=== PATIENT | male | born 1950 | race Caucasian/White ===

== ENCOUNTER 2018-08-08 15:35 | Inpatient (IN) | payer MEDICARE, BC, OTHER ==
[2018-08-08 15:52] LABS: BEDSIDE GLUCOSE 229 MG/DL (80-115)
[2018-08-08 16:03] LABS: BASO # 0.1 10^3/uL (0.0-0.2); BASO % 1.1 % (0.0-1.0); EOS # 0.4 10^3/uL (0.0-0.50); EOS % 4.4 % (0.0-3.0); HEMATOCRIT 33.7 % (42.0-52.0); IMMATURE GRANULOCYTE % 0.8 % (0-3.0); LYMPH # 1.9 10^3/uL (1.5-4.5); LYMPH % 20.3 % (24.0-44.0); MEAN CORPUSCULAR HEMOGLOBIN 28.9 pg (27.0-33.0); MEAN CORPUSCULAR HGB CONC 32.6 g/dl (32.0-36.5); MEAN CORPUSCULAR VOLUME 88.7 fl (80.0-96.0); MONO # 0.8 10^3/uL (0.0-0.8); MONO % 8.9 % (0.0-5.0); NEUTROPHILS # 5.9 10^3/uL (1.8-7.7); NEUTROPHILS % 64.5 % (36.0-66.0); PLATELET COUNT, AUTOMATED 355 10^3/uL (150-450); RED CELL DISTRIBUTION WIDTH 14.7 % (11.5-14.5); WHITE BLOOD COUNT 9.1 10^3/uL (4.0-10.0)
[2018-08-08] MEDS ORDERED: ATROPINE SULF 1MG/10ML SYRINGE (J0461) As Ordered (16:06)
[2018-08-08 16:15] LABS: INR 1.04; PROTHROMBIN TIME 13.7 SECONDS (12.1-14.4)
[2018-08-08 16:16] LABS: PARTIAL THROMBOPLASTIN TIME 30.7 SECONDS (25.4-37.6)
[2018-08-08 16:50] LABS: ANION GAP 14 MEQ/L (8-16); BLOOD UREA NITROGEN 58 MG/DL (7-18); CALCIUM LEVEL 8.7 MG/DL (8.8-10.2); CARBON DIOXIDE LEVEL 17 MEQ/L (21-32); CHLORIDE LEVEL 109 MEQ/L (98-107); CPK CREATINE PHOSPHOKINASE 210 U/L (39-308); CREATININE FOR GFR 3.52 MG/DL (0.70-1.30); FREE T4 0.99 NG/DL (0.76-1.46); GLOMERULAR FILTRATION RATE 18.5 (>49); GLUCOSE, FASTING 243 MG/DL (70-100); MAGNESIUM LEVEL 2.4 MG/DL (1.8-2.4); MB/CK RELATIVE INDEX 0.76 (< OR =4); POTASSIUM SERUM 6.4 MEQ/L (3.5-5.1); SODIUM LEVEL 140 MEQ/L (136-145); TROPONIN I < 0.02 NG/ML (< 0.10)
[2018-08-08] MEDS: HumuLIN R (REGULAR) INSULIN (NovoLIN R) **100U/ML** PER UNIT IV (17:22)
[2018-08-08] MEDS: SOD POLYSTYRENE SULFONATE SUSP 15 GM/60 ML UD PO ×2 (17:22→21:15)
[2018-08-08] MEDS: DEXTROSE 50% 50 ML SYRINGE IV (17:22)
[2018-08-08] MEDS: CALCIUM GLUCONATE 1,000 MG in D5W MINI-BAG PLUS 100 ML IV (17:23)
[2018-08-08 17:39] LABS: ABG BASE EXCESS -9.5 (-2.0-2.0); ABG HCO3 14.5 MEQ/L (22.0-26.0); ABG O2 SATURATION 97.1 % (95.0-99.0); ABG PARTIAL PRESSURE CO2 26.5 mmHg (35.0-45.0); ABG PARTIAL PRESSURE O2 100.7 mmHg (75.0-100.0); ABG STANDARD HCO3 16.8 MEQ/L (22.0-26.0); ABG TOTAL CO2 15.3 MEQ/L (23.0-31.0); ABG pH (ARTERIAL) 7.356 UNITS (7.350-7.450)
[2018-08-08] MEDS: SODIUM BICARBONATE 75 MEQ in NS 0.45% 1,000 ML IV (18:00)
[2018-08-08] MEDS ORDERED: ACETAMINOPHEN TAB 650MG DOSE (2X325MG) PO (18:30)
[2018-08-08] MEDS ORDERED: GLUCOSE 4 GM CHEW TABLET PO (18:30)
[2018-08-08] MEDS ORDERED: GLUCAGON FOR INJ 1 MG VIAL (J1610) SC (18:30)
[2018-08-08] MEDS ORDERED: DEXTROSE 50% 50 ML SYRINGE IV (18:30)
[2018-08-08] MEDS ORDERED: ONDANSETRON 4MG/2ML VIAL (J2405) IV (18:30)
[2018-08-08 20:32] LABS: ANION GAP 9 MEQ/L (8-16); BLOOD UREA NITROGEN 61 MG/DL (7-18); CALCIUM LEVEL 9.3 MG/DL (8.8-10.2); CARBON DIOXIDE LEVEL 18 MEQ/L (21-32); CHLORIDE LEVEL 110 MEQ/L (98-107); CPK CREATINE PHOSPHOKINASE 183 U/L (39-308); CREATININE FOR GFR 3.67 MG/DL (0.70-1.30); GLOMERULAR FILTRATION RATE 17.6 (>49); GLUCOSE, FASTING 179 MG/DL (70-100); MB/CK RELATIVE INDEX 0.93 (< OR =4); POTASSIUM SERUM 7.1 MEQ/L (3.5-5.1); SODIUM LEVEL 137 MEQ/L (136-145); TROPONIN I < 0.02 NG/ML (< 0.10)
[2018-08-08] MEDS: HumaLOG INSULIN (NovoLOG) PER UNIT SC (21:00)
[2018-08-08] MEDS: LACTULOSE 20 GM/30 ML SYRUP UD PO (21:15)
[2018-08-08] MEDS ORDERED: HEPARIN SOD (PORCINE) 5000 UNITS/ML VIAL IV (21:15)
[2018-08-08] MEDS: SODIUM BICARBONATE 8.4% INJ 50 ML SYRINGE IV (21:15)
[2018-08-08] MEDS: HEPARIN 1,000 UNITS/ML 10ML VIAL (FOR RADIOLOGY& DIALYSIS ONLY) XX (22:00)
[2018-08-08] MEDS: NS 500 ML IV (22:15)
[2018-08-08] MEDS: SENOKOT S TAB PO (23:00)
[2018-08-08 23:01] LABS: BEDSIDE GLUCOSE 183 MG/DL (80-115)
[2018-08-08] MEDS: HEPARIN SOD (PORCINE) 5000 UNITS/ML VIAL SC (23:01)
[2018-08-09] MEDS ORDERED: SODIUM BICARBONATE 75 MEQ in NS 0.45% 1,000 ML IV
[2018-08-09 00:26] LABS: OSMOLALITY URINE 419 MOSM/KG (500-800)
[2018-08-09 00:43] LABS: CHLORIDE,RANDOM URINE 57 MEQ/L; POTASSIUM RANDOM URINE 40.4 MEQ/L; SODIUM,RANDOM URINE 58 MEQ/L; TOTAL PROTEIN,RANDOM URINE 168.5 MG/DL (0.0-12.0)
[2018-08-09 01:18] LABS: AMORPHOUS SEDIMENT SMALL (NEGATIVE); APPEARANCE, URINE HAZY (CLEAR); BACTERIA, URINE AUTO NEGATIVE (NEGATIVE); BILIRUBIN, URINE AUTO NEGATIVE (NEGATIVE); BLOOD, URINE BLOOD 1+ (NEGATIVE); COLOR, URINE YELLOW (YELLOW); GLUCOSE, URINE (UA) AUTO 1+ mg/dL (NEGATIVE); KETONE, URINE AUTO NEGATIVE (NEGATIVE); LEUKOCYTE ESTERASE, URINE AUTO TRACE (NEGATIVE); MUCUS, URINE SMALL (NEGATIVE); NITRITE, URINE AUTO NEGATIVE (NEGATIVE); PROTEIN, URINE AUTO 2+ mg/dL (NEGATIVE); RBC, URINE AUTO 4 /HPF (0-3); SPECIFIC GRAVITY URINE AUTO 1.014 (1.002-1.035); SQUAMOUS EPITHELIAL CELL UR AU 0 /HPF (0-6); UROBILINOGEN, URINE AUTO 0.2 mg/dL (0.0-2.0); WBC, URINE AUTO 8 /HPF (0-3)
[2018-08-09 02:40] LABS: CPK CREATINE PHOSPHOKINASE 199 U/L (39-308); TROPONIN I 0.03 NG/ML (< 0.10)
[2018-08-09 04:04] LABS: BEDSIDE GLUCOSE 95 MG/DL (80-115)
[2018-08-09 05:14] LABS: HEMATOCRIT 30.2 % (42.0-52.0); MEAN CORPUSCULAR HEMOGLOBIN 28.2 pg (27.0-33.0); MEAN CORPUSCULAR HGB CONC 33.1 g/dl (32.0-36.5); MEAN CORPUSCULAR VOLUME 85.3 fl (80.0-96.0); PLATELET COUNT, AUTOMATED 286 10^3/uL (150-450); RED BLOOD COUNT 3.54 10^6/uL (4.30-6.10); RED CELL DISTRIBUTION WIDTH 14.4 % (11.5-14.5)
[2018-08-09] MEDS: HEPARIN SOD (PORCINE) 5000 UNITS/ML VIAL SC ×3 (05:16→21:19)
[2018-08-09 05:21] LABS: BEDSIDE GLUCOSE 74 MG/DL (80-115)
[2018-08-09 05:38] LABS: ALBUMIN 3.3 GM/DL (3.2-5.2); ANION GAP 10 MEQ/L (8-16); BLOOD UREA NITROGEN 42 MG/DL (7-18); CALCIUM LEVEL 8.9 MG/DL (8.8-10.2); CARBON DIOXIDE LEVEL 24 MEQ/L (21-32); CHLORIDE LEVEL 109 MEQ/L (98-107); CREATININE FOR GFR 2.63 MG/DL (0.70-1.30); GLOMERULAR FILTRATION RATE 25.8 (>49); GLUCOSE, FASTING 77 MG/DL (70-100); MAGNESIUM LEVEL 2.1 MG/DL (1.8-2.4); PHOSPHORUS LEVEL 3.7 MG/DL (2.5-4.9); POTASSIUM SERUM 4.3 MEQ/L (3.5-5.1); SODIUM LEVEL 143 MEQ/L (136-145)
[2018-08-09] MEDS: HumaLOG INSULIN (NovoLOG) PER UNIT SC ×4 (07:30→21:00)
[2018-08-09 08:21] LABS: BEDSIDE GLUCOSE 93 MG/DL (80-115)
[2018-08-09] MEDS: SENOKOT S TAB PO ×2 (09:00→21:00)
[2018-08-09] MEDS ORDERED: FEBUXOSTAT 40 MG TABLET (ULORIC) PO (09:00)
[2018-08-09 10:37] LABS: HEPATITIS B CORE ANTIBODY IGM NEGATIVE (NEGATIVE); HEPATITIS B SURFACE ANTIBODY NEGATIVE (POSITIVE); HEPATITIS B SURFACE ANTIGEN NEGATIVE (NEGATIVE); HEPATITIS C VIRUS ABY INDEX 0.1 INDEX (<0.8)
[2018-08-09 11:04] LABS: CK-MB VALUE MASS < 1.0 NG/ML (<3.6); CPK CREATINE PHOSPHOKINASE 178 U/L (39-308); MB/CK RELATIVE INDEX 0.56 (< OR =4); TROPONIN I 0.02 NG/ML (< 0.10)
[2018-08-09 12:54] LABS: BEDSIDE GLUCOSE 103 MG/DL (80-115)
[2018-08-09 14:27] LABS: ALBUMIN 3.5 GM/DL (3.2-5.2); ANION GAP 9 MEQ/L (8-16); BLOOD UREA NITROGEN 37 MG/DL (7-18); CALCIUM LEVEL 8.5 MG/DL (8.8-10.2); CARBON DIOXIDE LEVEL 25 MEQ/L (21-32); CHLORIDE LEVEL 109 MEQ/L (98-107); CREATININE FOR GFR 2.62 MG/DL (0.70-1.30); GLUCOSE, FASTING 85 MG/DL (70-100); POTASSIUM SERUM 4.7 MEQ/L (3.5-5.1); SODIUM LEVEL 143 MEQ/L (136-145)
[2018-08-09 17:15] LABS: BEDSIDE GLUCOSE 92 MG/DL (80-115)
[2018-08-09 20:49] LABS: BEDSIDE GLUCOSE 109 MG/DL (80-115)
[2018-08-09] MEDS: FEBUXOSTAT 40 MG TABLET (ULORIC) PO (21:18)
[2018-08-10] MEDS: HEPARIN SOD (PORCINE) 5000 UNITS/ML VIAL SC ×3 (05:52→21:20)
[2018-08-10 06:04] LABS: HEMATOCRIT 32.4 % (42.0-52.0); HEMOGLOBIN 10.4 g/dl (13.5-17.5); MEAN CORPUSCULAR HEMOGLOBIN 28.2 pg (27.0-33.0); MEAN CORPUSCULAR HGB CONC 32.1 g/dl (32.0-36.5); MEAN CORPUSCULAR VOLUME 87.8 fl (80.0-96.0); PLATELET COUNT, AUTOMATED 262 10^3/uL (150-450); RED BLOOD COUNT 3.69 10^6/uL (4.30-6.10); RED CELL DISTRIBUTION WIDTH 14.3 % (11.5-14.5); WHITE BLOOD COUNT 5.8 10^3/uL (4.0-10.0)
[2018-08-10 06:34] LABS: ANION GAP 6 MEQ/L (8-16); BLOOD UREA NITROGEN 34 MG/DL (7-18); CALCIUM LEVEL 8.3 MG/DL (8.8-10.2); CARBON DIOXIDE LEVEL 25 MEQ/L (21-32); CHLORIDE LEVEL 111 MEQ/L (98-107); GLOMERULAR FILTRATION RATE 28.7 (>49); GLUCOSE, FASTING 69 MG/DL (70-100); MAGNESIUM LEVEL 2.1 MG/DL (1.8-2.4); PHOSPHORUS LEVEL 3.7 MG/DL (2.5-4.9); POTASSIUM SERUM 4.9 MEQ/L (3.5-5.1); SODIUM LEVEL 142 MEQ/L (136-145)
[2018-08-10] MEDS: HumaLOG INSULIN (NovoLOG) PER UNIT SC ×4 (07:28→21:20)
[2018-08-10 08:06] LABS: HEPATITIS B CORE ANTIBODY IGG Negative (Negative)
[2018-08-10] MEDS: SENOKOT S TAB PO ×2 (09:00→21:20)
[2018-08-10 12:00] LABS: BEDSIDE GLUCOSE 156 MG/DL (80-115)
[2018-08-10 12:46] LABS: BEDSIDE GLUCOSE 120 MG/DL (80-115)
[2018-08-10 17:02] LABS: BEDSIDE GLUCOSE 124 MG/DL (80-115)
[2018-08-10 21:16] LABS: BEDSIDE GLUCOSE 171 MG/DL (80-115)
[2018-08-10] MEDS: FEBUXOSTAT 40 MG TABLET (ULORIC) PO (21:20)
[2018-08-11] MEDS: HEPARIN SOD (PORCINE) 5000 UNITS/ML VIAL SC ×2 (05:54→14:00)
[2018-08-11 06:43] LABS: HEMATOCRIT 33.7 % (42.0-52.0); HEMOGLOBIN 10.7 g/dl (13.5-17.5); MEAN CORPUSCULAR HEMOGLOBIN 27.9 pg (27.0-33.0); MEAN CORPUSCULAR HGB CONC 31.8 g/dl (32.0-36.5); PLATELET COUNT, AUTOMATED 271 10^3/uL (150-450); RED BLOOD COUNT 3.83 10^6/uL (4.30-6.10); WHITE BLOOD COUNT 5.3 10^3/uL (4.0-10.0)
[2018-08-11 07:10] LABS: ALBUMIN 2.9 GM/DL (3.2-5.2); ANION GAP 8 MEQ/L (8-16); BLOOD UREA NITROGEN 29 MG/DL (7-18); CALCIUM LEVEL 8.5 MG/DL (8.8-10.2); CARBON DIOXIDE LEVEL 23 MEQ/L (21-32); CHLORIDE LEVEL 111 MEQ/L (98-107); CREATININE FOR GFR 2.13 MG/DL (0.70-1.30); GLUCOSE, FASTING 94 MG/DL (70-100); MAGNESIUM LEVEL 1.8 MG/DL (1.8-2.4); PHOSPHORUS LEVEL 3.7 MG/DL (2.5-4.9); POTASSIUM SERUM 4.4 MEQ/L (3.5-5.1); SODIUM LEVEL 142 MEQ/L (136-145)
[2018-08-11] MEDS: HumaLOG INSULIN (NovoLOG) PER UNIT SC ×2 (07:30→12:00)
[2018-08-11] MEDS: SENOKOT S TAB PO (09:00)
[2018-08-11 11:46] LABS: BEDSIDE GLUCOSE 177 MG/DL (80-115)
== END 2018-08-11 16:23 | disposition home or self-care (01) | DRG 683 ==
LOC: M MSPAV 08-09 11:28 → M ED 15:35 → M ED INP 19:37 → M ICU 22:36
PROVIDERS: Hospitalist
PROC: 02HV33Z Insertion of Infusion Device into Superior Vena Cava, Percutaneous Approach (ICD-10-PCS; principal; 2018-08-08)
PROC: 5A1D70Z Performance of Urinary Filtration, Intermittent, Less than 6 Hours Per Day (ICD-10-PCS; 2018-08-08)
DX: N17.9 Acute kidney failure, unspecified (principal); E87.2 Acidosis; R55 Syncope and collapse; E87.5 Hyperkalemia; E11.22 Type 2 diabetes mellitus with diabetic chronic kidney disease; N18.3 Chronic kidney disease, stage 3 (moderate); M10.30 Gout due to renal impairment, unspecified site; I12.9 Hypertensive chronic kidney disease with stage 1 through stage 4 chronic kidney disease, or unspecified chronic kidney disease; I45.10 Unspecified right bundle-branch block; E11.40 Type 2 diabetes mellitus with diabetic neuropathy, unspecified; E86.0 Dehydration; N25.81 Secondary hyperparathyroidism of renal origin; T36.8X5A Adverse effect of other systemic antibiotics, initial encounter; D63.1 Anemia in chronic kidney disease; N28.1 Cyst of kidney, acquired; Z87.891 Personal history of nicotine dependence; Z88.0 Allergy status to penicillin; Z88.1 Allergy status to other antibiotic agents; Z79.84 Long term (current) use of oral hypoglycemic drugs; Z88.6 Allergy status to analgesic agent; E78.5 Hyperlipidemia, unspecified; Z91.030 Bee allergy status; Z79.899 Other long term (current) drug therapy; Z96.642 Presence of left artificial hip joint

== ENCOUNTER → 2019-08-13 | Outpatient (REF) | payer MEDICARE, OTHER ==
[~2019-08-13] MED LIST: BENI40TA26 PO; BETAPOW70 EXT; CALC1CAP31 PO; CIPR500T3 PO; EPIP0.3I2 IJ; FEBU40TA4 PO; GEMF600T5 PO; GLIM1TAB4 PO; GLIM2TAB4 PO; HYDR-3713 PO; IRONCAP2 PO; JANU100T PO; LASI20TA3 PO; NEUR300C PO; PERCOCET PO; STAR120T3 PO; TEKT300T PO; TRAM50TA2 PO; TRAV04OPD OD; TYLE325T5 PO; VERA240C PO; VITA50005 PO
[2019-08-13 13:45] LABS: CHOLESTEROL RISK RATIO 2.612 (<5); PERCENT SATURATION 13.2 % (19.7-50.0)
== END ==
LOC: M LAB REF 13:10
PROVIDERS: ATTEND Internal Medicine Nephrology
DX: E78.2 Mixed hyperlipidemia (principal); N18.3 Chronic kidney disease, stage 3 (moderate); D50.9 Iron deficiency anemia, unspecified

== ENCOUNTER 2020-05-26 08:12 | Outpatient (CLI) | payer MEDICARE, BC, OTHER ==
[~2020-05-26] VITALS: Ht 182.9 cm; Wt 129.5 kg
[2020-05-26 08:29] VITALS: BP 148/100
[2020-05-26] MEDS ORDERED: ALBUTEROL SULFATE 2.5 MG/0.5 ML INH NEB SOLN INH PRN (08:30)
[2020-05-26] MEDS ORDERED: EPINEPHrine INJ 1 MG/ML 1ML AMP IM PRN (08:30)
[2020-05-26] MEDS ORDERED: NS 1,000 ML IV SCH (08:30)
[2020-05-26] MEDS ORDERED: methylPREDNISolone 125MG 2ML VIAL IV PRN (08:30)
[2020-05-26] MEDS ORDERED: diphenhydrAMINE 50MG/ML VIAL (J1200) IV PRN (08:30)
[2020-05-26] MEDS ORDERED: FERRIC CARBOXYMALTOSE INJ 750 MG in NS 250 ML IV ONE (09:00)
[2020-05-26 09:20] VITALS: BP 162/78
== END 2020-05-26 10:55 | disposition home or self-care (01) ==
LOC: M INFU 08:12
PROVIDERS: ATTEND Internal Medicine Nephrology
DX: D50.9 Iron deficiency anemia, unspecified (principal)
CPT/HCPCS: 96365; J1439

== ENCOUNTER → 2020-10-20 | Outpatient (CLI) | payer MEDICARE, BC, OTHER | LOC: M LABSMTC 14:30 | PROVIDERS: ATTEND Pediatrics | DX: Z20.828 Contact with and (suspected) exposure to other viral communicable diseases (principal) ==

== ENCOUNTER → 2020-11-19 | Outpatient (REF) | payer MEDICARE, OTHER ==
[2020-11-19 17:51] LABS: PERCENT SATURATION 11.3 % (19.7-50.0)
== END ==
LOC: M LAB REF 17:16
PROVIDERS: ATTEND Internal Medicine Nephrology
DX: D50.9 Iron deficiency anemia, unspecified (principal)

== ENCOUNTER → 2020-11-25 | Outpatient (CLI) | payer MEDICARE, BC, OTHER ==
[~2020-11-25] VITALS: Ht 182.9 cm; Wt 130.4 kg
[~2020-11-25] MED LIST changes: +ALBUTEROL SULFATE 2.5 MG/0.5 ML INH NEB SOLN INH PRN; +EPINEPHrine INJ 1 MG/ML 1ML AMP IM PRN; +FERRIC CARBOXYMALTOSE INJ 750 MG in NS 250 ML IV ONE; +NS 1,000 ML IV SCH; +diphenhydrAMINE 50MG/ML VIAL (J1200) IV PRN; +methylPREDNISolone 125MG 2ML VIAL IV PRN
[2020-11-25 12:45] VITALS: BP 136/75
[2020-11-25 13:53] VITALS: BP 172/84
== END ==
LOC: M INFU 12:14
PROVIDERS: ATTEND Internal Medicine Nephrology
DX: D50.9 Iron deficiency anemia, unspecified (principal); Z88.0 Allergy status to penicillin; Z88.1 Allergy status to other antibiotic agents; Z88.2 Allergy status to sulfonamides; Z88.8 Allergy status to other drugs, medicaments and biological substances; Z91.030 Bee allergy status
CPT/HCPCS: 96365; J1439

== ENCOUNTER → 2021-04-07 | Outpatient (REF) | payer MEDICARE, OTHER ==
[~2021-04-07] MED LIST changes: -ALBUTEROL SULFATE 2.5 MG/0.5 ML INH NEB SOLN INH PRN; -EPINEPHrine INJ 1 MG/ML 1ML AMP IM PRN; -FERRIC CARBOXYMALTOSE INJ 750 MG in NS 250 ML IV ONE; -NS 1,000 ML IV SCH; -diphenhydrAMINE 50MG/ML VIAL (J1200) IV PRN; -methylPREDNISolone 125MG 2ML VIAL IV PRN
[2021-04-07 17:57] LABS: PERCENT SATURATION 14.3 % (19.7-50.0)
== END ==
LOC: M LAB REF 16:43
PROVIDERS: ATTEND Internal Medicine Nephrology
DX: D50.9 Iron deficiency anemia, unspecified (principal)

== ENCOUNTER → 2021-08-26 | Outpatient (REF) | payer MEDICARE, OTHER ==
[2021-08-26 14:33] LABS: PERCENT SATURATION 16.8 % (19.7-50.0)
== END ==
LOC: M LAB REF 12:56
PROVIDERS: ATTEND Internal Medicine Nephrology
DX: D50.9 Iron deficiency anemia, unspecified (principal)

== ENCOUNTER 2021-09-11 12:51 | Outpatient (CLI) | payer MEDICARE, BC, OTHER ==
[~2021-09-11] VITALS: Ht 182.9 cm; Wt 129.7 kg
[~2021-09-11 12:51] MED LIST changes: +ALBUTEROL SULFATE 2.5 MG/0.5 ML INH NEB SOLN INH PRN; +EPINEPHrine INJ 1 MG/ML 1ML AMP IM PRN; +diphenhydrAMINE 50MG/ML VIAL (J1200) IV PRN; +methylPREDNISolone 125MG 2ML VIAL IV PRN
[2021-09-11] MEDS ORDERED: NS 1,000 ML IV SCH (13:00)
[2021-09-11] MEDS ORDERED: FERRIC CARBOXYMALTOSE INJ 750 MG, VIAL MATE ADAPTER 1 EACH in NS 250 ML IV ONE (13:00)
[2021-09-11 13:49] VITALS: BP 163/70
[2021-09-11 14:57] VITALS: BP 157/73
== END 2021-09-11 14:50 | disposition home or self-care (01) ==
LOC: M INFU 12:51
PROVIDERS: ATTEND Internal Medicine Nephrology
DX: D50.9 Iron deficiency anemia, unspecified (principal); Z88.0 Allergy status to penicillin; Z88.1 Allergy status to other antibiotic agents; Z88.2 Allergy status to sulfonamides; Z88.6 Allergy status to analgesic agent; Z91.030 Bee allergy status
CPT/HCPCS: 96365; J1439

== ENCOUNTER 2021-09-24 12:30 | Outpatient (CLI) | payer MEDICARE, BC, OTHER ==
[~2021-09-24] VITALS: Ht 182.9 cm; Wt 129.7 kg
[~2021-09-24 12:30] MED LIST changes: +FERRIC CARBOXYMALTOSE INJ 750 MG, VIAL MATE ADAPTER 1 EACH in NS 250 ML IV ONE; +NS 1,000 ML IV SCH
[2021-09-24 12:50] VITALS: BP 177/78
[2021-09-24 13:42] VITALS: BP 179/76
== END 2021-09-24 14:00 | disposition home or self-care (01) ==
LOC: M INFU 12:30
PROVIDERS: ATTEND Internal Medicine Nephrology
DX: D50.9 Iron deficiency anemia, unspecified (principal); Z88.1 Allergy status to other antibiotic agents; Z88.2 Allergy status to sulfonamides; Z88.8 Allergy status to other drugs, medicaments and biological substances; Z88.0 Allergy status to penicillin; Z91.030 Bee allergy status
CPT/HCPCS: 96365; J1439

== ENCOUNTER → 2022-04-14 | Outpatient (REF) | payer MEDICARE, BC, OTHER ==
[~2022-04-14] MED LIST changes: -ALBUTEROL SULFATE 2.5 MG/0.5 ML INH NEB SOLN INH PRN; -EPINEPHrine INJ 1 MG/ML 1ML AMP IM PRN; -FERRIC CARBOXYMALTOSE INJ 750 MG, VIAL MATE ADAPTER 1 EACH in NS 250 ML IV ONE; -NS 1,000 ML IV SCH; -diphenhydrAMINE 50MG/ML VIAL (J1200) IV PRN; -methylPREDNISolone 125MG 2ML VIAL IV PRN
[2022-04-14 17:35] LABS: PERCENT SATURATION 9.2 % (19.7-50.0)
== END ==
LOC: M LAB REF 16:42
PROVIDERS: ATTEND Internal Medicine Nephrology
DX: D50.9 Iron deficiency anemia, unspecified (principal); D63.1 Anemia in chronic kidney disease

== ENCOUNTER 2022-04-15 10:45 | Outpatient (CLI) | payer MEDICARE, BC, OTHER ==
[~2022-04-15] VITALS: Ht 182.9 cm; Wt 126.8 kg
[~2022-04-15 10:45] MED LIST changes: +FUROSEMIDE 40MG/4ML VIAL (J1940) IV ONE
[2022-04-15 10:50] VITALS: BP 130/83
[2022-04-15 11:45] VITALS: BP 146/70
[2022-04-15 12:45] VITALS: BP 135/64
[2022-04-15 13:35] VITALS: BP 127/61
[2022-04-15 14:42] VITALS: BP 133/70
[2022-04-15 14:55] VITALS: BP 128/72
== END 2022-04-15 13:10 | disposition home or self-care (01) ==
LOC: M INFU 10:45
PROVIDERS: ATTEND Internal Medicine Nephrology
DX: D50.9 Iron deficiency anemia, unspecified (principal); D63.1 Anemia in chronic kidney disease; Z88.0 Allergy status to penicillin; Z88.1 Allergy status to other antibiotic agents; Z88.2 Allergy status to sulfonamides; Z91.030 Bee allergy status
CPT/HCPCS: 36430; 82728; 83550; 86850; 86900; 86901; 86920; P9016

== ENCOUNTER 2022-04-28 10:25 | Inpatient (IN) | payer MEDICARE, BC, OTHER ==
[~2022-04-28] VITALS: Ht 182.9 cm; Wt 125.4 kg
[2022-04-28] VITALS (11 sets, daily range): BP systolic 114–161; BP diastolic 57–87
[~2022-04-28 10:25] MED LIST changes: -FUROSEMIDE 40MG/4ML VIAL (J1940) IV ONE
[2022-04-28 11:47] LABS: BASO % 0.5 % (0.0-1.0); EOS # 0.1 10^3/uL (0.0-0.5); EOS % 0.7 % (0.0-3.0); LYMPH # 0.6 10^3/uL (1.5-5.0); LYMPH % 7.5 % (24.0-44.0); MEAN CORPUSCULAR HGB CONC 30.4 g/dl (32.0-36.5); MEAN CORPUSCULAR VOLUME 95.3 fl (80.0-96.0); MONO # 0.4 10^3/uL (0.0-0.8); MONO % 5.9 % (2.0-8.0); NEUTROPHILS # 6.2 10^3/uL (1.5-8.5); NEUTROPHILS % 84.6 % (36.0-66.0); PLATELET COUNT, AUTOMATED 208 10^3/uL (150-450); RED BLOOD COUNT 1.93 10^6/uL (4.30-6.10); WHITE BLOOD COUNT 7.3 10^3/uL (4.0-10.0)
[2022-04-28 11:49] LABS: HEMATOCRIT 18.4 % (42.0-52.0)
[2022-04-28 11:50] LABS: HEMOGLOBIN 5.6 g/dl (13.5-17.5)
[2022-04-28 11:56] LABS: INR 1.15; PARTIAL THROMBOPLASTIN TIME 27.6 SECONDS (25.9-37.0); PROTHROMBIN TIME 15.1 SECONDS (12.7-14.5)
[2022-04-28 12:14] LABS: ALBUMIN 3.4 GM/DL (3.2-5.2); ALT/SGPT 12 U/L (12-78); BILIRUBIN,DIRECT < 0.1 MG/DL (0.0-0.2); BILIRUBIN,TOTAL 0.3 MG/DL (0.2-1.0); LIPASE 208 U/L (73-393); MAGNESIUM LEVEL 2.2 MG/DL (1.8-2.4); PHOSPHORUS LEVEL 4.6 MG/DL (2.5-4.9); TOTAL PROTEIN 6.3 GM/DL (6.4-8.2)
[2022-04-28 12:26] LABS: RSV AMPLIFICATION NEGATIVE (NEGATIVE)
[2022-04-28 13:25] LABS: BLOOD UREA NITROGEN 74 MG/DL (7-18); CARBON DIOXIDE LEVEL 19 MEQ/L (21-32); CHLORIDE LEVEL 111 MEQ/L (98-107); CREATININE FOR GFR 6.64 MG/DL (0.70-1.30); GLOMERULAR FILTRATION RATE 8.8 (>42); GLUCOSE, FASTING 200 MG/DL (70-100); POTASSIUM SERUM 5.7 MEQ/L (3.5-5.1); SODIUM LEVEL 140 MEQ/L (136-145)
[2022-04-28] MEDS ORDERED: ACET1TAB55 PO (13:31)
[2022-04-28] MEDS ORDERED: LOPI600T PO (13:31)
[2022-04-28] MEDS ORDERED: LOKE5PAK PO (13:31)
[2022-04-28] MEDS ORDERED: ERGO500029 PO (13:31)
[2022-04-28] MEDS ORDERED: HYDR-3911 PO (13:31)
[2022-04-28] MEDS ORDERED: METO5TA PO (13:31)
[2022-04-28] MEDS ORDERED: SITA50TAB PO (13:31)
[2022-04-28] MEDS ORDERED: VERA240T64 PO (13:31)
[2022-04-28] MEDS ORDERED: TERA2CAP3 PO (13:31)
[2022-04-28] MEDS ORDERED: TORS20TA2 PO (13:31)
[2022-04-28] MEDS ORDERED: PANT40TA29 PO (13:31)
[2022-04-28] MEDS ORDERED: SODI650T PO (13:31)
[2022-04-28] MEDS ORDERED: ROSU10TA6 PO (13:31)
[2022-04-28] MEDS ORDERED: HOME MED LIST COMPLETE! XX SCH (13:35)
[2022-04-28] MEDS ORDERED: SOD POLYSTYRENE SULFONATE SUSP 15GM 60ML UD PO ONE (14:15)
[2022-04-28] MEDS ORDERED: DEXTROSE 50% 50 ML SYRINGE IV PRN (14:30)
[2022-04-28] MEDS ORDERED: GLUCAGON INJ 1MG VIAL SC PRN (14:30)
[2022-04-28] MEDS ORDERED: GLUCOSE 4GM CHEW TABLET PO PRN (14:30)
[2022-04-28] MEDS ORDERED: ACETAMINOPHEN TAB 650MG DOSE (2X325MG) PO PRN (14:30)
[2022-04-28 14:46] LABS: PERCENT SATURATION 8.6 % (19.7-50.0)
[2022-04-28 14:53] LABS: FOLATE 11.1 NG/ML (>5.4)
[2022-04-28 16:30] LABS: CK-MB VALUE MASS 2.2 NG/ML (<3.6); MB/CK RELATIVE INDEX 2.29 (< OR =4)
[2022-04-28 17:45] LABS: CK-MB VALUE MASS 2.1 NG/ML (<3.6); MB/CK RELATIVE INDEX 2.06 (< OR =4)
[2022-04-28] MEDS: INSULIN LISPRO (NovoLOG) PER UNIT SC SCH ×2 (17:49→20:16)
[2022-04-28] MEDS: PANTOPRAZOLE 40MG VIAL IV SCH (17:49)
[2022-04-28] MEDS: SODIUM BICARBONATE 325 MG TAB PO SCH (20:17)
[2022-04-28] MEDS: **hydrALAZINE** 50 MG TAB PO SCH (20:18)
[2022-04-28] MEDS: TERAZOSIN 1 MG CAP PO SCH (20:18)
[2022-04-28 20:33] LABS: BASO % 0.5 % (0.0-1.0); EOS % 0.3 % (0.0-3.0); HEMATOCRIT 22.6 % (42.0-52.0); HEMOGLOBIN 7.1 g/dl (13.5-17.5); LYMPH # 0.6 10^3/uL (1.5-5.0); LYMPH % 7.5 % (24.0-44.0); MEAN CORPUSCULAR HEMOGLOBIN 29.5 pg (27.0-33.0); MEAN CORPUSCULAR HGB CONC 31.4 g/dl (32.0-36.5); MEAN CORPUSCULAR VOLUME 93.8 fl (80.0-96.0); MONO # 0.6 10^3/uL (0.0-0.8); NEUTROPHILS # 6.6 10^3/uL (1.5-8.5); NEUTROPHILS % 82.8 % (36.0-66.0); PLATELET COUNT, AUTOMATED 232 10^3/uL (150-450); RED BLOOD COUNT 2.41 10^6/uL (4.30-6.10); WHITE BLOOD COUNT 7.9 10^3/uL (4.0-10.0)
[2022-04-28 20:56] LABS: CALCIUM LEVEL 8.4 MG/DL (8.8-10.2); CREATININE FOR GFR 6.57 MG/DL (0.70-1.30); GLOMERULAR FILTRATION RATE 8.9 (>42); POTASSIUM SERUM 4.7 MEQ/L (3.5-5.1)
[2022-04-28 21:00] LABS: CK-MB VALUE MASS 2.1 NG/ML (<3.6); MB/CK RELATIVE INDEX 1.91 (< OR =4)
[2022-04-29] VITALS (16 sets, daily range): BP systolic 132–170; BP diastolic 62–86
[2022-04-29] MEDS: PANTOPRAZOLE 40MG VIAL IV SCH ×2 (05:37→16:16)
[2022-04-29 06:47] LABS: BASO # 0.1 10^3/uL (0.0-0.2); BASO % 0.9 % (0.0-1.0); EOS # 0.1 10^3/uL (0.0-0.5); EOS % 1.4 % (0.0-3.0); HEMATOCRIT 23.4 % (42.0-52.0); HEMOGLOBIN 7.7 g/dl (13.5-17.5); LYMPH # 0.6 10^3/uL (1.5-5.0); LYMPH % 7.9 % (24.0-44.0); MEAN CORPUSCULAR HEMOGLOBIN 30.2 pg (27.0-33.0); MEAN CORPUSCULAR HGB CONC 32.9 g/dl (32.0-36.5); MEAN CORPUSCULAR VOLUME 91.8 fl (80.0-96.0); MONO # 0.6 10^3/uL (0.0-0.8); MONO % 8.1 % (2.0-8.0); NEUTROPHILS # 5.9 10^3/uL (1.5-8.5); NEUTROPHILS % 80.2 % (36.0-66.0); PLATELET COUNT, AUTOMATED 246 10^3/uL (150-450); RED BLOOD COUNT 2.55 10^6/uL (4.30-6.10); WHITE BLOOD COUNT 7.4 10^3/uL (4.0-10.0)
[2022-04-29 07:16] LABS: CALCIUM LEVEL 9.3 MG/DL (8.8-10.2); CREATININE FOR GFR 6.12 MG/DL (0.70-1.30); GLOMERULAR FILTRATION RATE 9.6 (>42); MAGNESIUM LEVEL 2.1 MG/DL (1.8-2.4); POTASSIUM SERUM 4.5 MEQ/L (3.5-5.1)
[2022-04-29] MEDS: INSULIN LISPRO (NovoLOG) PER UNIT SC SCH ×4 (07:30→21:00)
[2022-04-29] MEDS ORDERED: FERROUS GLUCONATE 324 MG TAB PO SCH (09:00)
[2022-04-29] MEDS: VERAPAMIL 120MG SR TAB PO SCH (09:05)
[2022-04-29] MEDS: SODIUM BICARBONATE 325 MG TAB PO SCH ×2 (09:07→21:27)
[2022-04-29] MEDS: CALCITRIOL 0.25 MCG CAP (S0169) PO SCH (09:07)
[2022-04-29] MEDS: ROSUVASTATIN 10 MG TAB (CRESTOR) PO SCH (09:08)
[2022-04-29] MEDS: **hydrALAZINE** 50 MG TAB PO SCH ×2 (09:08→21:27)
[2022-04-29] MEDS ORDERED: IRON SUCROSE 100MG 5ML VIAL (J1756 PER 1MG) IV SCH (11:20)
[2022-04-29] MEDS: IRON SUCROSE 250 MG in NS 250 ML IV SCH (16:17)
[2022-04-29 18:42] LABS: HEMOGLOBIN 9.6 g/dl (13.5-17.5); MEAN CORPUSCULAR HEMOGLOBIN 30.2 pg (27.0-33.0); MEAN CORPUSCULAR HGB CONC 33.1 g/dl (32.0-36.5); MEAN CORPUSCULAR VOLUME 91.2 fl (80.0-96.0); PLATELET COUNT, AUTOMATED 245 10^3/uL (150-450); RED BLOOD COUNT 3.18 10^6/uL (4.30-6.10); WHITE BLOOD COUNT 7.7 10^3/uL (4.0-10.0)
[2022-04-29] MEDS: TERAZOSIN 1 MG CAP PO SCH (21:26)
[2022-04-30] VITALS (7 sets, daily range): BP systolic 141–165; BP diastolic 65–82
[2022-04-30 04:29] LABS: BASO # 0.1 10^3/uL (0.0-0.2); BASO % 0.9 % (0.0-1.0); EOS # 0.1 10^3/uL (0.0-0.5); EOS % 0.9 % (0.0-3.0); HEMATOCRIT 28.5 % (42.0-52.0); HEMOGLOBIN 9.1 g/dl (13.5-17.5); LYMPH # 0.8 10^3/uL (1.5-5.0); LYMPH % 10.2 % (24.0-44.0); MEAN CORPUSCULAR HEMOGLOBIN 28.9 pg (27.0-33.0); MEAN CORPUSCULAR HGB CONC 31.9 g/dl (32.0-36.5); MEAN CORPUSCULAR VOLUME 90.5 fl (80.0-96.0); MONO # 0.7 10^3/uL (0.0-0.8); MONO % 9.4 % (2.0-8.0); NEUTROPHILS # 5.8 10^3/uL (1.5-8.5); NEUTROPHILS % 77.7 % (36.0-66.0); PLATELET COUNT, AUTOMATED 244 10^3/uL (150-450); RED BLOOD COUNT 3.15 10^6/uL (4.30-6.10); WHITE BLOOD COUNT 7.5 10^3/uL (4.0-10.0)
[2022-04-30 04:43] LABS: CALCIUM LEVEL 9.1 MG/DL (8.8-10.2); CREATININE FOR GFR 5.8 MG/DL (0.70-1.30); GLOMERULAR FILTRATION RATE 10.3 (>42); POTASSIUM SERUM 4.4 MEQ/L (3.5-5.1)
[2022-04-30] MEDS: PANTOPRAZOLE 40MG VIAL IV SCH ×2 (05:09→20:31)
[2022-04-30] MEDS: INSULIN LISPRO (NovoLOG) PER UNIT SC SCH ×4 (07:30→20:41)
[2022-04-30] MEDS: CALCITRIOL 0.25 MCG CAP (S0169) PO SCH (09:00)
[2022-04-30] MEDS: ROSUVASTATIN 10 MG TAB (CRESTOR) PO SCH (09:00)
[2022-04-30] MEDS: **hydrALAZINE** 50 MG TAB PO SCH ×2 (09:29→20:31)
[2022-04-30] MEDS: SODIUM BICARBONATE 325 MG TAB PO SCH ×2 (09:30→20:31)
[2022-04-30] MEDS: VERAPAMIL 120MG SR TAB PO SCH (09:30)
[2022-04-30] MEDS: CALCIUM ACETATE 667MG GELCAP PO SCH ×2 (12:30→18:00)
[2022-04-30 14:13] LABS: HEMATOCRIT 28.5 % (42.0-52.0); HEMOGLOBIN 9.3 g/dl (13.5-17.5)
[2022-04-30] MEDS: IRON SUCROSE 250 MG in NS 250 ML IV SCH (16:23)
[2022-04-30] MEDS ORDERED: propofoL 200 MG/20 ML VIAL As Ordered ONE ×2 (18:41→19:29)
[2022-04-30] MEDS ORDERED: LR 1,000 ML IV SCH (19:40)
[2022-04-30] MEDS ORDERED: ONDANSETRON 4MG/2ML VIAL IV PRN (19:40)
[2022-04-30] MEDS: TERAZOSIN 1 MG CAP PO SCH (20:31)
[2022-05-01 03:55] VITALS: BP 170/75
[2022-05-01 06:01] LABS: BASO # 0.1 10^3/uL (0.0-0.2); EOS # 0.1 10^3/uL (0.0-0.5); EOS % 1.4 % (0.0-3.0); HEMATOCRIT 27.8 % (42.0-52.0); LYMPH # 0.8 10^3/uL (1.5-5.0); LYMPH % 12.5 % (24.0-44.0); MEAN CORPUSCULAR HEMOGLOBIN 30.1 pg (27.0-33.0); MEAN CORPUSCULAR HGB CONC 32.4 g/dl (32.0-36.5); MONO # 0.7 10^3/uL (0.0-0.8); MONO % 11.2 % (2.0-8.0); NEUTROPHILS # 4.5 10^3/uL (1.5-8.5); NEUTROPHILS % 72.5 % (36.0-66.0); PLATELET COUNT, AUTOMATED 235 10^3/uL (150-450); RED BLOOD COUNT 2.99 10^6/uL (4.30-6.10); WHITE BLOOD COUNT 6.3 10^3/uL (4.0-10.0)
[2022-05-01 06:15] LABS: CALCIUM LEVEL 9.3 MG/DL (8.8-10.2); CREATININE FOR GFR 5.24 MG/DL (0.70-1.30); GLOMERULAR FILTRATION RATE 11.5 (>42); MAGNESIUM LEVEL 1.8 MG/DL (1.8-2.4); POTASSIUM SERUM 4.2 MEQ/L (3.5-5.1)
[2022-05-01] MEDS: PANTOPRAZOLE 40MG VIAL IV SCH ×2 (06:46→17:28)
[2022-05-01] MEDS: INSULIN LISPRO (NovoLOG) PER UNIT SC SCH ×4 (07:30→20:34)
[2022-05-01 07:52] VITALS: BP 154/74
[2022-05-01] MEDS: CALCITRIOL 0.25 MCG CAP (S0169) PO SCH (08:12)
[2022-05-01] MEDS: CALCIUM ACETATE 667MG GELCAP PO SCH ×3 (08:12→17:28)
[2022-05-01] MEDS: SODIUM BICARBONATE 325 MG TAB PO SCH ×2 (08:12→20:35)
[2022-05-01] MEDS: VERAPAMIL 120MG SR TAB PO SCH (08:13)
[2022-05-01] MEDS: **hydrALAZINE** 50 MG TAB PO SCH ×2 (08:13→20:36)
[2022-05-01] MEDS: ROSUVASTATIN 10 MG TAB (CRESTOR) PO SCH (08:13)
[2022-05-01] MEDS ORDERED: TORSEMIDE 20 MG TAB PO ONE (11:30)
[2022-05-01 12:12] VITALS: BP 140/69
[2022-05-01] MEDS: IRON SUCROSE 250 MG in NS 250 ML IV SCH (15:36)
[2022-05-01 16:00] VITALS: BP 135/65
[2022-05-01] MEDS: TORSEMIDE 20 MG TAB PO SCH (17:28)
[2022-05-01 19:35] VITALS: BP 140/66
[2022-05-01] MEDS: FIBER-CON 625 MG TAB PO SCH (20:35)
[2022-05-01] MEDS: LACTOBACILLUS ACIDOPHILUS CAP (BACID) PO SCH (20:35)
[2022-05-01] MEDS ORDERED: FEBUXOSTAT 40 MG TABLET (ULORIC) PO SCH (21:00)
[2022-05-01 23:40] VITALS: BP 172/68
[2022-05-01] MEDS: TERAZOSIN 1 MG CAP PO SCH (23:46)
[2022-05-02 01:07] VITALS: BP 152/54
[2022-05-02 03:55] VITALS: BP 139/63
[2022-05-02] MEDS: PANTOPRAZOLE 40MG VIAL IV SCH (05:31)
[2022-05-02 06:07] LABS: BASO # 0.1 10^3/uL (0.0-0.2); BASO % 0.8 % (0.0-1.0); EOS # 0.1 10^3/uL (0.0-0.5); EOS % 1.8 % (0.0-3.0); HEMATOCRIT 28.4 % (42.0-52.0); HEMOGLOBIN 9.1 g/dl (13.5-17.5); LYMPH # 0.9 10^3/uL (1.5-5.0); LYMPH % 11.6 % (24.0-44.0); MEAN CORPUSCULAR HEMOGLOBIN 29.7 pg (27.0-33.0); MEAN CORPUSCULAR VOLUME 92.8 fl (80.0-96.0); MONO # 0.8 10^3/uL (0.0-0.8); MONO % 11.2 % (2.0-8.0); NEUTROPHILS # 5.4 10^3/uL (1.5-8.5); NEUTROPHILS % 73.2 % (36.0-66.0); PLATELET COUNT, AUTOMATED 240 10^3/uL (150-450); RED BLOOD COUNT 3.06 10^6/uL (4.30-6.10); WHITE BLOOD COUNT 7.3 10^3/uL (4.0-10.0)
[2022-05-02 06:40] LABS: CALCIUM LEVEL 9.2 MG/DL (8.8-10.2); CREATININE FOR GFR 5.26 MG/DL (0.70-1.30); GLOMERULAR FILTRATION RATE 11.5 (>42); MAGNESIUM LEVEL 1.9 MG/DL (1.8-2.4); POTASSIUM SERUM 4.1 MEQ/L (3.5-5.1)
[2022-05-02] MEDS: INSULIN LISPRO (NovoLOG) PER UNIT SC SCH ×2 (07:30→12:00)
[2022-05-02 08:00] VITALS: BP 157/77
[2022-05-02 08:25] VITALS: BP 157/77
[2022-05-02] MEDS: LACTOBACILLUS ACIDOPHILUS CAP (BACID) PO SCH (08:25)
[2022-05-02] MEDS: **hydrALAZINE** 50 MG TAB PO SCH (08:25)
[2022-05-02] MEDS: VERAPAMIL 120MG SR TAB PO SCH (08:25)
[2022-05-02] MEDS: FIBER-CON 625 MG TAB PO SCH (08:26)
[2022-05-02] MEDS: TORSEMIDE 20 MG TAB PO SCH (08:26)
[2022-05-02] MEDS: ROSUVASTATIN 10 MG TAB (CRESTOR) PO SCH (08:26)
[2022-05-02] MEDS: CALCITRIOL 0.25 MCG CAP (S0169) PO SCH (08:26)
[2022-05-02] MEDS: CALCIUM ACETATE 667MG GELCAP PO SCH ×2 (08:26→12:46)
[2022-05-02] MEDS: SODIUM BICARBONATE 325 MG TAB PO SCH (08:27)
[2022-05-02 12:00] VITALS: BP 131/93
[2022-05-02] MEDS ORDERED: FERR324T2 PO (12:46)
[2022-05-02] MEDS: IRON SUCROSE 250 MG in NS 250 ML IV SCH (14:19)
== END 2022-05-02 16:36 | disposition home health service (06) | DRG 378 ==
LOC: M ED 10:25 → M ED INP 14:26 → M PCU 15:40
PROVIDERS: ADMIT Internal Medicine; ATTEND Internal Medicine
PROC: B246ZZZ Ultrasonography of Right and Left Heart (ICD-10-PCS; principal; 2022-04-28)
PROC: 30233N1 Transfusion of Nonautologous Red Blood Cells into Peripheral Vein, Percutaneous Approach (ICD-10-PCS; 2022-04-29)
PROC: 0DJ08ZZ Inspection of Upper Intestinal Tract, Via Natural or Artificial Opening Endoscopic (ICD-10-PCS; 2022-04-30)
DX: K92.2 Gastrointestinal hemorrhage, unspecified (principal); N17.9 Acute kidney failure, unspecified; E87.2 Acidosis; N18.4 Chronic kidney disease, stage 4 (severe); I13.0 Hypertensive heart and chronic kidney disease with heart failure and stage 1 through stage 4 chronic kidney disease, or unspecified chronic kidney disease; D50.0 Iron deficiency anemia secondary to blood loss (chronic); E11.22 Type 2 diabetes mellitus with diabetic chronic kidney disease; E78.5 Hyperlipidemia, unspecified; M10.9 Gout, unspecified; Z96.641 Presence of right artificial hip joint; Z87.891 Personal history of nicotine dependence; Z20.822 Contact with and (suspected) exposure to COVID-19; Z79.899 Other long term (current) drug therapy; Z88.0 Allergy status to penicillin; Z88.1 Allergy status to other antibiotic agents; Z88.2 Allergy status to sulfonamides; Z88.6 Allergy status to analgesic agent; Z88.8 Allergy status to other drugs, medicaments and biological substances; Z91.030 Bee allergy status; E87.5 Hyperkalemia; D63.1 Anemia in chronic kidney disease; M19.90 Unspecified osteoarthritis, unspecified site; I80.8 Phlebitis and thrombophlebitis of other sites; I50.9 Heart failure, unspecified; K31.7 Polyp of stomach and duodenum

== ENCOUNTER 2022-05-13 09:40 | Outpatient (CLI) | payer MEDICARE, BC, OTHER ==
[~2022-05-13] VITALS: Ht 177.8 cm; Wt 125.0 kg
[~2022-05-13 09:40] MED LIST changes: +ACET1TAB55 PO; +ALBUTEROL SULFATE 2.5 MG/0.5 ML INH NEB SOLN INH PRN; +EPINEPHrine INJ 1 MG/ML 1ML AMP IM PRN; +ERGO500029 PO; +FERR324T2 PO; +HYDR-3911 PO; +LOKE5PAK PO; +LOPI600T PO; +METO5TA PO; +PANT40TA29 PO; +ROSU10TA6 PO; +SITA50TAB PO; +SODI650T PO; +TERA2CAP3 PO; +TORS20TA2 PO; +VERA240T64 PO; +diphenhydrAMINE 50MG/ML VIAL (J1200) IV PRN; +methylPREDNISolone 125MG 2ML VIAL IV PRN
[2022-05-13 09:57] VITALS: BP 158/74
[2022-05-13] MEDS ORDERED: FERRIC CARBOXYMALTOSE INJ 750 MG in NS 250 ML (>50kg) IV ONE ×3 (10:00)
[2022-05-13] MEDS ORDERED: NS 1,000 ML IV SCH (10:00)
[2022-05-13 11:15] VITALS: BP 130/68
== END 2022-05-13 11:15 | disposition home or self-care (01) ==
LOC: M INFU 09:40
PROVIDERS: ATTEND Internal Medicine Nephrology
DX: D50.9 Iron deficiency anemia, unspecified (principal); Z88.0 Allergy status to penicillin; Z88.1 Allergy status to other antibiotic agents; Z88.2 Allergy status to sulfonamides; Z88.8 Allergy status to other drugs, medicaments and biological substances
CPT/HCPCS: 96365; J1439

== ENCOUNTER 2022-05-20 09:45 | Outpatient (CLI) | payer MEDICARE, BC, OTHER ==
[~2022-05-20] VITALS: Ht 182.9 cm; Wt 124.0 kg
[2022-05-20] MEDS ORDERED: NS 1,000 ML IV SCH (10:00)
[2022-05-20] MEDS ORDERED: FERRIC CARBOXYMALTOSE INJ 750 MG in NS 250 ML (>50kg) IV ONE ×3 (10:00)
[2022-05-20 10:02] VITALS: BP 139/64
[2022-05-20 10:58] VITALS: BP 110/59
== END 2022-05-20 11:00 | disposition home or self-care (01) ==
LOC: M INFU 09:45
PROVIDERS: ATTEND Internal Medicine Nephrology
DX: D50.9 Iron deficiency anemia, unspecified (principal); Z88.0 Allergy status to penicillin; Z88.1 Allergy status to other antibiotic agents; Z88.2 Allergy status to sulfonamides; Z88.8 Allergy status to other drugs, medicaments and biological substances; Z88.6 Allergy status to analgesic agent; Z91.030 Bee allergy status
CPT/HCPCS: 96365; J1439

== ENCOUNTER → 2022-06-08 | Outpatient (REF) | payer MEDICARE, BC, OTHER ==
[~2022-06-08] MED LIST changes: -ALBUTEROL SULFATE 2.5 MG/0.5 ML INH NEB SOLN INH PRN; -EPINEPHrine INJ 1 MG/ML 1ML AMP IM PRN; -diphenhydrAMINE 50MG/ML VIAL (J1200) IV PRN; -methylPREDNISolone 125MG 2ML VIAL IV PRN
[2022-06-08 19:02] LABS: PERCENT SATURATION 26.1 % (19.7-50.0)
== END ==
LOC: M LAB REF 16:57
PROVIDERS: ATTEND Internal Medicine Nephrology
DX: D50.9 Iron deficiency anemia, unspecified (principal)

== ENCOUNTER → 2022-06-14 | Outpatient (CLI) | payer MEDICARE, BC, OTHER | LOC: M RAD 09:45 | PROVIDERS: ATTEND Internal Medicine Nephrology | DX: N18.5 Chronic kidney disease, stage 5 (principal); Z01.818 Encounter for other preprocedural examination ==

== ENCOUNTER → 2022-06-18 | Outpatient (REF) | payer MEDICARE, OTHER, BC ==
[2022-06-18 19:05] LABS: HEPATITIS B CORE ANTIBODY IGM NEGATIVE (NEGATIVE); HEPATITIS B SURFACE ANTIBODY NEGATIVE (POSITIVE); HEPATITIS B SURFACE ANTIGEN NEGATIVE (NEGATIVE); HEPATITIS C VIRUS ABY INDEX < 0.0 INDEX (<0.8)
== END ==
LOC: M LAB REF 17:09
PROVIDERS: ATTEND Internal Medicine Nephrology
DX: N18.6 End stage renal disease (principal)

== ENCOUNTER → 2023-02-08 | Outpatient (POV) | payer MEDICARE, BC, OTHER ==
[~2023-02-08] VITALS: Ht 182.9 cm; Wt 113.1 kg
[~2023-02-08] MED LIST changes: -BENI40TA26 PO; +OLME40TA56 PO
[2023-02-08 11:20] VITALS: BP 129/72
== END ==
LOC: M IRPOV 11:07
PROVIDERS: ATTEND Radiology Diagnostic Radiology
DX: N19 Unspecified kidney failure (principal); Z45.2 Encounter for adjustment and management of vascular access device; Z88.0 Allergy status to penicillin; Z88.1 Allergy status to other antibiotic agents; Z88.2 Allergy status to sulfonamides; Z88.8 Allergy status to other drugs, medicaments and biological substances; Z99.2 Dependence on renal dialysis; Z88.6 Allergy status to analgesic agent; Z91.030 Bee allergy status

== ENCOUNTER → 2023-02-17 | Outpatient (CLI) | payer BC, OTHER ==
[~2023-02-17] MED LIST changes: +LIDOCAINE 1% MDV 20ML VIAL As Ordered ONE
[2023-02-17 13:00] VITALS: BP 152/71
== END ==
LOC: M IRPRO 11:52
PROVIDERS: ATTEND Internal Medicine Nephrology
DX: E11.22 Type 2 diabetes mellitus with diabetic chronic kidney disease (principal); N18.9 Chronic kidney disease, unspecified

== ENCOUNTER → 2023-03-08 | Outpatient (POV) | payer MEDICARE, BC, OTHER ==
[~2023-03-08] VITALS: Ht 182.9 cm; Wt 113.6 kg
[~2023-03-08] MED LIST changes: -LIDOCAINE 1% MDV 20ML VIAL As Ordered ONE
[2023-03-08 09:20] VITALS: BP 136/69
== END ==
LOC: M IRPOV 09:06
PROVIDERS: ATTEND Radiology Diagnostic Radiology
DX: Z48.812 Encounter for surgical aftercare following surgery on the circulatory system (principal)

== ENCOUNTER → 2023-09-27 | Day surgery (SDC) | payer MEDICARE, BC, OTHER ==
[~2023-09-27] VITALS: Ht 182.9 cm; Wt 95.8 kg
[~2023-09-27] MED LIST changes: +BETA0.053 TOP; +CLINDAMYCIN 900 MG in IV 1 EA IV ONE; -EPIP0.3I2 IJ; +EPIP0.3I2 IM; +HEPARIN SOD (PORCINE) 5000UNITS/ML 1ML VIAL/SYRINGE As Ordered ONE; +LIDO30CR18 TOP; +LIDOCAINE 2% 100MG/5ML SDV (FOR ANES.) As Ordered ONE; +LR 1,000 ML IV SCH; +MORPHINE 2 MG/ML 1ML VIAL IV PRN; +NORCO, ANEXSIA 5/325MG TABLET (HYDROcodone/ACETAMINOPHEN) PO PRN; +ONDANSETRON 4MG 2ML VIAL As Ordered ONE; +ONDANSETRON 4MG 2ML VIAL IV PRN; +PHENYLephrine 500MCG 5ML (100MCG/ML) SYRINGE As Ordered ONE; +ROCURONIUM BROMIDE 50MG/5ML VIAL As Ordered ONE; +ROPI5TAB19 PO; +SEVE800T3 PO; +SUGAMMADEX SODIUM 500 MG/5 ML VIAL (BRIDION) As Ordered ONE; +UNRESOLVED CLARIFICATION ENTRY XX SCH; +VOLTAREN TOP; +fentaNYL 100 MCG/2 ML INJECTION As Ordered ONE; +fentaNYL 100 MCG/2 ML INJECTION IV PRN; +oxyCODONE 5MG TAB PO PRN; +propofoL 200 MG/20 ML VIAL As Ordered ONE
[2023-09-27 16:20] VITALS: BP 169/77; TEMP 97.7; O2SAT 99
== END | disposition home or self-care (01) ==
LOC: M SDC 13:09
PROVIDERS: ATTEND Surgery
DX: N18.6 End stage renal disease (principal); Z99.2 Dependence on renal dialysis; E11.29 Type 2 diabetes mellitus with other diabetic kidney complication; D63.1 Anemia in chronic kidney disease; Z87.891 Personal history of nicotine dependence; Z88.6 Allergy status to analgesic agent; Z88.1 Allergy status to other antibiotic agents; Z88.0 Allergy status to penicillin; Z88.2 Allergy status to sulfonamides; Z88.8 Allergy status to other drugs, medicaments and biological substances; Z91.040 Latex allergy status; Z91.030 Bee allergy status; Z79.899 Other long term (current) drug therapy
CPT/HCPCS: 49324; 93005; J0665; J0737; J1100; J2371; J2405; J3010

== ENCOUNTER → 2024-06-11 | Outpatient (REF) | payer MEDICARE, BC, OTHER ==
[~2024-06-11] MED LIST changes: -CLINDAMYCIN 900 MG in IV 1 EA IV ONE; -GLIM1TAB4 PO; +GLIM1TAB84 PO; -HEPARIN SOD (PORCINE) 5000UNITS/ML 1ML VIAL/SYRINGE As Ordered ONE; -HYDR-3911 PO; +HYDR50TA46 PO; -LIDOCAINE 2% 100MG/5ML SDV (FOR ANES.) As Ordered ONE; -LR 1,000 ML IV SCH; -MORPHINE 2 MG/ML 1ML VIAL IV PRN; -NORCO, ANEXSIA 5/325MG TABLET (HYDROcodone/ACETAMINOPHEN) PO PRN; -ONDANSETRON 4MG 2ML VIAL As Ordered ONE; -ONDANSETRON 4MG 2ML VIAL IV PRN; -PHENYLephrine 500MCG 5ML (100MCG/ML) SYRINGE As Ordered ONE; -ROCURONIUM BROMIDE 50MG/5ML VIAL As Ordered ONE; -ROSU10TA6 PO; +ROSU10TA61 PO; -SUGAMMADEX SODIUM 500 MG/5 ML VIAL (BRIDION) As Ordered ONE; -UNRESOLVED CLARIFICATION ENTRY XX SCH; -fentaNYL 100 MCG/2 ML INJECTION As Ordered ONE; -fentaNYL 100 MCG/2 ML INJECTION IV PRN; -oxyCODONE 5MG TAB PO PRN; -propofoL 200 MG/20 ML VIAL As Ordered ONE
[2024-06-11 19:44] LABS: HEMATOCRIT 22.1 % (42.0-52.0)
== END ==
LOC: M LAB REF 17:14
PROVIDERS: ATTEND Internal Medicine Nephrology
DX: N18.6 End stage renal disease (principal); D63.1 Anemia in chronic kidney disease

== ENCOUNTER 2024-06-13 14:12 | Outpatient (CLI) | payer MEDICARE, BC, OTHER ==
[2024-06-13 15:01] VITALS: BP 104/56; O2SAT 99
[2024-06-13 16:34] VITALS: BP 111/61; TEMP 97.4; O2SAT 99
[2024-06-13 17:30] VITALS: BP 132/76; TEMP 97.6; O2SAT 98
[2024-06-13 18:01] VITALS: BP 138/74; TEMP 98; O2SAT 99
[2024-06-13 18:05] VITALS: BP 138/74; O2SAT 99
== END 2024-06-13 18:05 | disposition home or self-care (01) ==
LOC: M LAB 14:12 → M INFU 18:05
PROVIDERS: ATTEND Internal Medicine Nephrology
DX: N18.6 End stage renal disease (principal); D63.1 Anemia in chronic kidney disease; Z88.0 Allergy status to penicillin; Z88.2 Allergy status to sulfonamides; Z88.1 Allergy status to other antibiotic agents; Z88.8 Allergy status to other drugs, medicaments and biological substances; Z91.040 Latex allergy status
CPT/HCPCS: 36430; 86850; 86900; 86901; 86920; P9016

== ENCOUNTER → 2024-06-18 | Outpatient (REF) | payer MEDICARE, BC, OTHER ==
[2024-06-18 14:29] LABS: HEMATOCRIT 25.9 % (42.0-52.0)
== END ==
LOC: M LAB REF 13:01
PROVIDERS: ATTEND Internal Medicine Nephrology
DX: N18.6 End stage renal disease (principal); D63.1 Anemia in chronic kidney disease

== ENCOUNTER 2024-08-18 16:29 | Emergency (ER) | payer MEDICARE, BC, OTHER ==
[2024-08-18] VITALS (9 sets, daily range): BP systolic 118–130; BP diastolic 57–77; TEMP 97.1–98.4; O2SAT 95–99
[~2024-08-18] VITALS: Ht 182.9 cm; Wt 103.5 kg
[2024-08-18 17:02] LABS: HEMATOCRIT 21.2 % (42.0-52.0); MEAN CORPUSCULAR HEMOGLOBIN 28.1 pg (27.0-33.0); MEAN CORPUSCULAR HGB CONC 30.7 g/dl (32.0-36.5); MEAN CORPUSCULAR VOLUME 91.8 fl (80.0-96.0); PLATELET COUNT, AUTOMATED 252 10^3/uL (150-450); RED BLOOD COUNT 2.31 10^6/uL (4.30-6.10)
[2024-08-18 17:07] LABS: HEMOGLOBIN 6.5 g/dl (13.5-17.5)
[2024-08-18 17:28] LABS: CALCIUM LEVEL 7.4 MG/DL (8.3-10.6); CREATININE FOR GFR 6.98 MG/DL (0.70-1.30); GLOMERULAR FILTRATION RATE 8.2 (>42); POTASSIUM SERUM 4.7 MMOL/L (3.5-5.1)
[2024-08-18 17:44] LABS: PERCENT SATURATION 12.4 % (19.7-50.0)
[2024-08-18] MEDS: PANTOPRAZOLE 40MG VIAL IV ONE (17:45)
[2024-08-18 17:47] LABS: FERRITIN 270.5 NG/ML (10.5-307.3); FOLATE 10.4 NG/ML (>5.4)
[2024-08-18] MEDS: PANTOPRAZOLE SODIUM 40 MG in D5W 50 ML IV SCH (17:52)
[2024-08-18] MEDS ORDERED: DICL20GE TP (22:02)
[2024-08-18] MEDS ORDERED: TENA30TA PO (22:02)
[2024-08-18] MEDS ORDERED: MUPI30CR PD (22:02)
[2024-08-18] MEDS ORDERED: CINA30TA5 PO (22:02)
[2024-08-18] MEDS ORDERED: VERA240C3 PO (22:02)
[2024-08-18] MEDS ORDERED: BUME2TAB3 PO (22:02)
[2024-08-18] MEDS ORDERED: ROCA0.5C PO (23:03)
[2024-08-18] MEDS ORDERED: HOME MED LIST COMPLETE! XX SCH (23:05)
== END 2024-08-18 23:32 | disposition left against medical advice (07) ==
LOC: M ED 16:29 → CANBEDREQ 20:35 → M ED 23:32
DX: K92.2 Gastrointestinal hemorrhage, unspecified (principal); N18.6 End stage renal disease; Z99.2 Dependence on renal dialysis; Z53.9 Procedure and treatment not carried out, unspecified reason; I51.7 Cardiomegaly; E11.9 Type 2 diabetes mellitus without complications; I10 Essential (primary) hypertension; E78.5 Hyperlipidemia, unspecified; M10.9 Gout, unspecified; Z79.899 Other long term (current) drug therapy; Z88.0 Allergy status to penicillin; Z88.2 Allergy status to sulfonamides; Z88.8 Allergy status to other drugs, medicaments and biological substances; Z91.040 Latex allergy status; Z91.030 Bee allergy status
CPT/HCPCS: 36430; 71045; 80048; 82607; 82728; 82746; 83550; 85027; 86850; 86900; 86901; 86920; 93005; 96365; 96366; 99284; J2470; P9016

== ENCOUNTER 2024-08-22 16:18 | Inpatient (IN) | payer MEDICARE, BC, OTHER ==
[~2024-08-22] VITALS: Ht 182.9 cm; Wt 112.8 kg
[~2024-08-22 16:18] MED LIST changes: +BUME2TAB3 PO; +CINA30TA5 PO; +DICL20GE TP; +MUPI30CR PD; +ROCA0.5C PO; +TENA30TA PO; +VERA240C3 PO
[2024-08-22] MEDS ORDERED: DEXTROSE 50% 50ML SYRINGE As Ordered ONE (16:53)
[2024-08-22] MEDS: DEXTROSE 50% 50ML SYRINGE IV STA ×5 (16:55→22:40)
[2024-08-22 17:27] LABS: BASO % 0.5 % (0.0-1.0); EOS # 0.1 10^3/uL (0.0-0.5); EOS % 1.8 % (0.0-3.0); HEMATOCRIT 24.9 % (42.0-52.0); HEMOGLOBIN 7.7 g/dl (13.5-17.5); LYMPH # 0.3 10^3/uL (1.5-5.0); LYMPH % 4.5 % (24.0-44.0); MEAN CORPUSCULAR HEMOGLOBIN 28.8 pg (27.0-33.0); MEAN CORPUSCULAR HGB CONC 30.9 g/dl (32.0-36.5); MEAN CORPUSCULAR VOLUME 93.3 fl (80.0-96.0); MONO # 0.4 10^3/uL (0.0-0.8); MONO % 6.8 % (2.0-8.0); NEUTROPHILS # 5.3 10^3/uL (1.5-8.5); NEUTROPHILS % 84.9 % (36.0-66.0); PLATELET COUNT, AUTOMATED 231 10^3/uL (150-450); RED BLOOD COUNT 2.67 10^6/uL (4.30-6.10); WHITE BLOOD COUNT 6.2 10^3/uL (4.0-10.0)
[2024-08-22 17:29] LABS: BLOOD UREA NITROGEN 56 MG/DL (9-23); CALCIUM LEVEL 7.9 MG/DL (8.3-10.6); CARBON DIOXIDE LEVEL 24 MMOL/L (20-31); CHLORIDE LEVEL 105 MMOL/L (98-107); GLOMERULAR FILTRATION RATE 8.9 (>42); GLUCOSE, FASTING 33 MG/DL (74-106); POTASSIUM SERUM 3.6 MMOL/L (3.5-5.1); SODIUM LEVEL 139 MMOL/L (136-145)
[2024-08-22] MEDS: D5W/0.45% SODIUM CHLORIDE 1,000 ML IV SCH (18:10)
[2024-08-22] MEDS: PANTOPRAZOLE 40MG VIAL IV ONE (18:57)
[2024-08-22] MEDS: PANTOPRAZOLE SODIUM 40 MG in D5W 50 ML IV SCH (19:03)
[2024-08-22] MEDS: GASTROGRAFIN SOLUTION 30ML PO SCH (19:22)
[2024-08-22] MEDS ORDERED: ISOVUE-370 76% 100ML VIAL As Ordered ONE (19:57)
[2024-08-22] MEDS: D10W/0.45% SODIUM CHLORIDE 1,000 ML IV SCH (20:30)
[2024-08-22 23:40] LABS: LIPASE 46 U/L (12-53)
[2024-08-22 23:42] LABS: ALBUMIN 2.8 G/DL (3.2-5.2); ALKALINE PHOSPHATASE 89 U/L (46-116); ALT/SGPT < 9 U/L (7.0-40); AST/SGOT 14 U/L (<34); BILIRUBIN,DIRECT 0.1 MG/DL (<0.4); BILIRUBIN,TOTAL 0.2 MG/DL (0.3-1.2); TOTAL PROTEIN 6.2 G/DL (5.7-8.2)
[2024-08-23] VITALS (24 sets, daily range): BP systolic 128–169; BP diastolic 58–75; TEMP 97.1–98.4; O2SAT 94–98
[2024-08-23] MEDS: DEXTROSE 50% 50ML SYRINGE IV STA ×4 (00:21→11:23)
[2024-08-23] MEDS ORDERED: MAALOX 30 ML SUSP *UDC PO PRN (01:30)
[2024-08-23] MEDS ORDERED: GLUCAGON INJ 1MG VIAL SC PRN (01:30)
[2024-08-23] MEDS ORDERED: ROPI0.5T33 PO (02:28)
[2024-08-23] MEDS ORDERED: HOME MED LIST COMPLETE! XX SCH (02:30)
[2024-08-23 02:31] LABS: MEAN CORPUSCULAR HEMOGLOBIN 28.7 pg (27.0-33.0); MEAN CORPUSCULAR HGB CONC 30.6 g/dl (32.0-36.5); MEAN CORPUSCULAR VOLUME 93.7 fl (80.0-96.0); PLATELET COUNT, AUTOMATED 183 10^3/uL (150-450); RED BLOOD COUNT 2.23 10^6/uL (4.30-6.10); WHITE BLOOD COUNT 6.8 10^3/uL (4.0-10.0)
[2024-08-23 02:39] LABS: HEMATOCRIT 20.9 % (42.0-52.0)
[2024-08-23 02:41] LABS: HEMOGLOBIN 6.4 g/dl (13.5-17.5)
[2024-08-23 02:54] LABS: CREATININE FOR GFR 6.21 MG/DL (0.70-1.30); GLOMERULAR FILTRATION RATE 9.4 (>42); MAGNESIUM LEVEL 1.9 MG/DL (1.8-2.4)
[2024-08-23] MEDS: DEXTROSE 50% 50ML SYRINGE IV PRN ×2 (03:44→16:12)
[2024-08-23] MEDS: GLUCAGON INJ 1MG VIAL IV STA (03:44)
[2024-08-23] MEDS: rOPINIRole 0.25 MG TAB(REQUIP) PO SCH (04:14)
[2024-08-23] MEDS: TERAZOSIN 1 MG CAP PO SCH (04:16)
[2024-08-23] MEDS: D10W/0.45% SODIUM CHLORIDE 1,000 ML IV SCH (05:36)
[2024-08-23] MEDS: GLUCOSE 4 GM CHEW PO PRN (06:50)
[2024-08-23] MEDS: ACETAMINOPHEN 325 MG TAB PO PRN (07:00)
[2024-08-23] MEDS: (RENVELA) SEVELAMER **CARBONate** 800 MG TAB PO SCH (08:55)
[2024-08-23] MEDS: PANTOPRAZOLE 40MG TAB (PROTONIX) PO SCH (08:55)
[2024-08-23] MEDS: ROSUVASTATIN 10 MG TAB (CRESTOR) PO SCH (08:55)
[2024-08-23] MEDS: CINACALCET 30 MG TAB (SENSIPAR) PO SCH (08:55)
[2024-08-23] MEDS: BUMETANIDE 1 MG TAB PO SCH (08:56)
[2024-08-23] MEDS: CALCITRIOL 0.25 MCG CAP (S0169) PO SCH ×2 (08:56→08:59)
[2024-08-23] MEDS: VERAPAMIL 120MG SR TAB PO SCH (08:57)
[2024-08-23] MEDS ORDERED: SODIUM CHLORIDE 0.9% 1000ML IV PRN (11:05)
[2024-08-23] MEDS ORDERED: LIDOCAINE 1% SDV 5ML VIAL SC PRN (11:05)
[2024-08-23] MEDS ORDERED: HEPARIN 1,000UNITS/ML 10ML VIAL (FOR RADIOLOGY & DIALYSIS ONLY) XX SCH (11:05)
[2024-08-23] MEDS ORDERED: HEPARIN 1,000UNITS/ML 10ML VIAL (FOR RADIOLOGY & DIALYSIS ONLY) IV PRN (11:05)
[2024-08-23] MEDS: GLUCAGON INJ 1MG VIAL SC STA (11:23)
[2024-08-23] MEDS: HYDROCORTISONE 100MG/2ML VIAL IV ONE (12:15)
[2024-08-23 12:55] LABS: HEMATOCRIT 27.7 % (42.0-52.0); HEMOGLOBIN 8.8 g/dl (13.5-17.5); MEAN CORPUSCULAR HEMOGLOBIN 29.4 pg (27.0-33.0); MEAN CORPUSCULAR HGB CONC 31.8 g/dl (32.0-36.5); MEAN CORPUSCULAR VOLUME 92.6 fl (80.0-96.0); PLATELET COUNT, AUTOMATED 209 10^3/uL (150-450); RED BLOOD COUNT 2.99 10^6/uL (4.30-6.10); WHITE BLOOD COUNT 12.7 10^3/uL (4.0-10.0)
[2024-08-23 13:25] LABS: ALBUMIN 2.5 G/DL (3.2-5.2); ALKALINE PHOSPHATASE 81 U/L (46-116); ALT/SGPT < 9 U/L (7.0-40); AST/SGOT 13 U/L (<34); BILIRUBIN,TOTAL 0.4 MG/DL (0.3-1.2); BLOOD UREA NITROGEN 54 MG/DL (9-23); CALCIUM LEVEL 7.7 MG/DL (8.3-10.6); CARBON DIOXIDE LEVEL 20 MMOL/L (20-31); CHLORIDE LEVEL 107 MMOL/L (98-107); CREATININE FOR GFR 6.15 MG/DL (0.70-1.30); GLOMERULAR FILTRATION RATE 9.5 (>42); GLUCOSE, FASTING 58 MG/DL (74-106); POTASSIUM SERUM 4.1 MMOL/L (3.5-5.1); SODIUM LEVEL 138 MMOL/L (136-145); TOTAL PROTEIN 5.6 G/DL (5.7-8.2)
[2024-08-23 18:17] LABS: HEMATOCRIT 28.8 % (42.0-52.0); HEMOGLOBIN 9.3 g/dl (13.5-17.5)
[2024-08-23] MEDS: PANTOPRAZOLE 40MG VIAL IV SCH (20:34)
[2024-08-23] MEDS: FEBUXOSTAT 40 MG TABLET (ULORIC) PO SCH (20:38)
[2024-08-23] MEDS ORDERED: FEBUXOSTAT 40 MG TABLET (ULORIC) PO SCH (21:00)
[2024-08-24] VITALS (12 sets, daily range): BP systolic 115–150; BP diastolic 58–82; TEMP 97–98.2; O2SAT 93–99
[2024-08-24 04:53] LABS: HEMATOCRIT 25.3 % (42.0-52.0); HEMOGLOBIN 8.1 g/dl (13.5-17.5); MEAN CORPUSCULAR HEMOGLOBIN 28.8 pg (27.0-33.0); PLATELET COUNT, AUTOMATED 184 10^3/uL (150-450); RED BLOOD COUNT 2.81 10^6/uL (4.30-6.10); WHITE BLOOD COUNT 6.9 10^3/uL (4.0-10.0)
[2024-08-24 05:09] LABS: CORTISOL AM 16.6 UG/DL (4.3-22.4)
[2024-08-24 05:12] LABS: ACETONE/KETONE 0.06 MMOL/L (0.02-0.27)
[2024-08-24 05:13] LABS: ALBUMIN 2.3 G/DL (3.2-5.2); ALKALINE PHOSPHATASE 75 U/L (46-116); ALT/SGPT < 9 U/L (7.0-40); AST/SGOT 10 U/L (<34); BILIRUBIN,TOTAL 0.4 MG/DL (0.3-1.2); BLOOD UREA NITROGEN 31 MG/DL (9-23); CALCIUM LEVEL 8.5 MG/DL (8.3-10.6); CARBON DIOXIDE LEVEL 24 MMOL/L (20-31); CHLORIDE LEVEL 106 MMOL/L (98-107); GLOMERULAR FILTRATION RATE 14.8 (>42); GLUCOSE, FASTING 157 MG/DL (74-106); MAGNESIUM LEVEL 1.9 MG/DL (1.8-2.4); POTASSIUM SERUM 4.3 MMOL/L (3.5-5.1); SODIUM LEVEL 137 MMOL/L (136-145); TOTAL PROTEIN 5.2 G/DL (5.7-8.2)
[2024-08-24] MEDS: TERAZOSIN 1 MG CAP PO SCH (21:02)
[2024-08-25] VITALS (13 sets, daily range): BP systolic 110–148; BP diastolic 56–82; TEMP 97.1–97.9; O2SAT 89–98
[2024-08-25] MEDS ORDERED: LIDOCAINE 1% SDV 5ML VIAL SC PRN (06:00)
[2024-08-25] MEDS ORDERED: HEPARIN 1,000UNITS/ML 10ML VIAL (FOR RADIOLOGY & DIALYSIS ONLY) XX SCH (06:00)
[2024-08-25] MEDS ORDERED: HEPARIN 1,000UNITS/ML 10ML VIAL (FOR RADIOLOGY & DIALYSIS ONLY) IV PRN (06:00)
[2024-08-25] MEDS ORDERED: SODIUM CHLORIDE 0.9% 1000ML IV PRN (06:00)
[2024-08-25 06:28] LABS: C-PEPTIDE 7.61 ng/mL (0.80-3.85)
[2024-08-25 06:40] LABS: HEMATOCRIT 25.5 % (42.0-52.0); HEMOGLOBIN 8.1 g/dl (13.5-17.5); MEAN CORPUSCULAR HEMOGLOBIN 28.8 pg (27.0-33.0); MEAN CORPUSCULAR HGB CONC 31.8 g/dl (32.0-36.5); MEAN CORPUSCULAR VOLUME 90.7 fl (80.0-96.0); PLATELET COUNT, AUTOMATED 179 10^3/uL (150-450); RED BLOOD COUNT 2.81 10^6/uL (4.30-6.10); WHITE BLOOD COUNT 5.8 10^3/uL (4.0-10.0)
[2024-08-25 07:04] LABS: CALCIUM LEVEL 8.6 MG/DL (8.3-10.6); CREATININE FOR GFR 5.03 MG/DL (0.70-1.30); POTASSIUM SERUM 4.6 MMOL/L (3.5-5.1)
[2024-08-25] MEDS: (RENVELA) SEVELAMER **CARBONate** 800 MG TAB PO SCH (13:35)
[2024-08-25] MEDS: FEBUXOSTAT 40 MG TABLET (ULORIC) PO SCH (17:00)
[2024-08-26 04:46] VITALS: BP 138/78; TEMP 98.8; O2SAT 98
[2024-08-26 06:21] LABS: HEMATOCRIT 24.7 % (42.0-52.0); HEMOGLOBIN 7.7 g/dl (13.5-17.5); MEAN CORPUSCULAR HEMOGLOBIN 28.7 pg (27.0-33.0); MEAN CORPUSCULAR HGB CONC 31.2 g/dl (32.0-36.5); MEAN CORPUSCULAR VOLUME 92.2 fl (80.0-96.0); PLATELET COUNT, AUTOMATED 188 10^3/uL (150-450); RED BLOOD COUNT 2.68 10^6/uL (4.30-6.10); WHITE BLOOD COUNT 5.9 10^3/uL (4.0-10.0)
[2024-08-26 06:34] LABS: CALCIUM LEVEL 8.4 MG/DL (8.3-10.6); CREATININE FOR GFR 3.79 MG/DL (0.70-1.30); GLOMERULAR FILTRATION RATE 16.6 (>42); POTASSIUM SERUM 4.2 MMOL/L (3.5-5.1)
[2024-08-26 06:35] LABS: ACETONE/KETONE 0.05 MMOL/L (0.02-0.27)
[2024-08-26 07:59] VITALS: BP 136/79
[2024-08-26 08:00] VITALS: BP 136/79; TEMP 97.7; O2SAT 98
[2024-08-26 08:06] LABS: HEMOGLOBIN 8.5 g/dl (13.5-17.5)
[2024-08-26 11:15] LABS: HEMATOCRIT 25.5 % (42.0-52.0)
[2024-08-28 10:07] LABS: C-PEPTIDE 6.74 ng/mL (0.80-3.85)
== END 2024-08-26 13:50 | disposition home or self-care (01) | DRG 638 ==
LOC: M ED 16:18 → M ED INP 08-23 01:26 → M PCU 08-23 02:39 → M ICU 08-23 13:08 → M PCU 08-24 17:47 → M MS5PR 08-25 21:16
PROVIDERS: ADMIT Internal Medicine; ATTEND General Practice
PROC: 5A1D70Z Performance of Urinary Filtration, Intermittent, Less than 6 Hours Per Day (ICD-10-PCS; principal; 2024-08-23)
PROC: 3E1M39Z Irrigation of Peritoneal Cavity using Dialysate, Percutaneous Approach (ICD-10-PCS; 2024-08-23)
PROC: 30233N1 Transfusion of Nonautologous Red Blood Cells into Peripheral Vein, Percutaneous Approach (ICD-10-PCS; 2024-08-23)
DX: E11.649 Type 2 diabetes mellitus with hypoglycemia without coma (principal); I13.2 Hypertensive heart and chronic kidney disease with heart failure and with stage 5 chronic kidney disease, or end stage renal disease; K92.1 Melena; I50.32 Chronic diastolic (congestive) heart failure; D62 Acute posthemorrhagic anemia; N18.6 End stage renal disease; E11.22 Type 2 diabetes mellitus with diabetic chronic kidney disease; E78.5 Hyperlipidemia, unspecified; M10.9 Gout, unspecified; K80.20 Calculus of gallbladder without cholecystitis without obstruction; N40.0 Benign prostatic hyperplasia without lower urinary tract symptoms; E87.70 Fluid overload, unspecified; N25.0 Renal osteodystrophy; G25.81 Restless legs syndrome; D63.8 Anemia in other chronic diseases classified elsewhere; Z99.2 Dependence on renal dialysis; Z91.198 Patient's noncompliance with other medical treatment and regimen for other reason; Z79.899 Other long term (current) drug therapy; Z88.0 Allergy status to penicillin; Z88.1 Allergy status to other antibiotic agents; Z88.2 Allergy status to sulfonamides; Z88.8 Allergy status to other drugs, medicaments and biological substances; Z88.6 Allergy status to analgesic agent; Z91.040 Latex allergy status; Z87.891 Personal history of nicotine dependence

== ENCOUNTER → 2024-12-03 | Outpatient (CLI) | payer MEDICARE, BC, OTHER ==
[~2024-12-03] MED LIST changes: +ROPI0.5T33 PO
== END ==
LOC: M RAD 11:51
PROVIDERS: ATTEND Podiatrist Foot & Ankle Surgery
DX: I73.9 Peripheral vascular disease, unspecified (principal)

== ENCOUNTER → 2025-02-06 | Outpatient (POV) | payer MEDICARE, BC, OTHER ==
[~2025-02-06] VITALS: Ht 182.9 cm; Wt 103.8 kg
[2025-02-06 11:00] VITALS: BP 118/70; O2SAT 100
== END ==
LOC: M IRPOV 10:15
PROVIDERS: ATTEND Radiology Diagnostic Radiology
DX: E11.52 Type 2 diabetes mellitus with diabetic peripheral angiopathy with gangrene (principal); I13.2 Hypertensive heart and chronic kidney disease with heart failure and with stage 5 chronic kidney disease, or end stage renal disease; N18.6 End stage renal disease; I50.22 Chronic systolic (congestive) heart failure; E11.42 Type 2 diabetes mellitus with diabetic polyneuropathy; E11.621 Type 2 diabetes mellitus with foot ulcer; E63.1 Imbalance of constituents of food intake; G25.81 Restless legs syndrome; I25.10 Atherosclerotic heart disease of native coronary artery without angina pectoris; I83.813 Varicose veins of bilateral lower extremities with pain; L97.819 Non-pressure chronic ulcer of other part of right lower leg with unspecified severity; L97.829 Non-pressure chronic ulcer of other part of left lower leg with unspecified severity; N25.0 Renal osteodystrophy; N25.81 Secondary hyperparathyroidism of renal origin; N40.1 Benign prostatic hyperplasia with lower urinary tract symptoms; Z99.2 Dependence on renal dialysis; Z87.891 Personal history of nicotine dependence; Z80.7 Family history of other malignant neoplasms of lymphoid, hematopoietic and related tissues; Z82.49 Family history of ischemic heart disease and other diseases of the circulatory system; Z79.899 Other long term (current) drug therapy; Z88.0 Allergy status to penicillin; Z88.1 Allergy status to other antibiotic agents; Z88.2 Allergy status to sulfonamides; Z88.6 Allergy status to analgesic agent; Z88.8 Allergy status to other drugs, medicaments and biological substances; Z91.030 Bee allergy status; Z91.040 Latex allergy status